=== PATIENT | male | born 1965 | race Caucasian/White ===

== ENCOUNTER 2025-06-04 17:34 | Emergency (ER) | payer MEDICAID, SELFPAY ==
[2025-06-04 17:39] VITALS: BP 152/100; PULSE 89; O2SAT 97
[2025-06-04 17:44] VITALS: BP 152/100; PULSE 87; RESP 22; TEMP 36.9; O2SAT 95; BMI 29.4
--- NOTE | 2025-06-04 17:44 | ED_ITS ---
<Statement entered by Shawanda Nascimento DO - 06/04/25 20:25> I was consulted by the TIFFANY, and we discussed the complexity of problems being addressed. I approve the treatment and management plan for this patient's care in the emergency department, thus performing a substantial portion of the medical decision making. Shawanda Nascimento DO Discharge Plan Disposition Patient Disposition: Home, Self-Care Condition: Good Prescriptions Prescriptions: New azithromycin 500 mg tablet 500 mg PO DAILY 5 Days Qty: 5 0RF Rx Instructions: start on day 2 of therapy prednisone 20 mg tablet 40 mg PO DAILY 5 Days Qty: 10 0RF Referrals Follow up/Referrals: Provider,Referral, MD [Primary Care Provider, Medical] - See instructions Activity Restrictions/Add. Instructions Additional Instructions/Restrictions: Please return to the emergency department with any worsening signs or symptoms, please use inhaler and take medications as prescribed. Please follow-up with your family doctor and other specialist when you get home. Clinical Impressions Clinical Impression: Acute exacerbation of chronic obstructive airways disease Instructions Patient Instructions: Chronic Obstructive Pulmonary Disease, DI for Chronic Obstructive Pulmonary Disease, DI for Emphysema Print Language Print Language: Welsh Discharge ED Provider: Shawanda Nascimento General Adult HPI General Chief complaint: Shortness of Breath/Dyspnea Stated complaint: Sent by [facility]; Low Oxygen; SOB Time Seen by Provider: 06/04/25 17:41 Mode of Arrival: Ambulatory Source of Information: Patient Limitations: No Limitations History of Present Illness HPI narrative: 59-year-old male presents the emergency department at the request of urgent care provider, patient has had some subjective fever chills cough and congestion, for the last 3 to 4 days, describes it as productive cough coughing up phlegm , as well as shortness of breath, was seen in the urgent care treatment facility today, patient is from out of town, concern for low oxygen saturation , thus prompted emergency department evaluation, patient received a what sounds like nebulized breathing treatment, as well as negative rapid COVID and flu swabs, denies any chest pain, lightheadedness, dizziness, no abdominal pain no nausea no vomiting no constipation no diarrhea no urinary cosmetology, patient is a current everyday smoker, denies any alcohol or drug use, other past medical history is consistent with prior CABG, hyperlipidemia, T2DM, COPD, hypertension, GERD. Initial triage vitals are unremarkable, no tachycardia no hypoxia, SpO2 on room air is 98%. Please note that above description of symptoms, in this electronic medical record under categorization of recalled from ER triage doctor by RN are reflective of an initial nursing assessment, however, is not reflective of my full history and physical exam that was personally taken and clarified. Consequentially, this preceding description of symptoms, which may include the patient's categorized chief complaint in the EMR, do not reflect my personal clinical impression, and the ultimate description of history of present illness and patient stated complaints should be deferred to this section of the note. Unless stated otherwise or congruent with this section of the note, additional signs, symptoms, or incongruence should be interpreted as inaccurate with my clinical impression. Onset (ago): day(s) Related Data Previous Rx's ?Medication ?Instructions ?Recorded azithromycin 500 mg tablet 500 mg PO DAILY 5 days #5 t abs 06/04/25 prednisone 20 mg tablet 40 mg (2 x 20 mg) PO DAILY 5 days 06/04/25 #10 tabs Allergies Allergy/AdvReac Type Severity Reaction Status Date / Time No Known Allergies Allergy Verified 06/04/25 18:08 [facility] Disclaimer: The information contained in this section may have been updated after the patient was seen, as this information can be updated by other users. Social History Smoking Status: Current every day smoker alcohol intake: never current occupational status: other Travel in the last 8 weeks?: None ROS Obtained: Yes All systems reviewed & no additional complaints except as documented Physical Exam General General appearance: alert and in no apparent distress Head Head exam: atraumatic and normocephalic Eye Eye exam: Present PERRL and EOMI ENT ENT exam: Present mucous membranes moist Neck Neck exam: Present normal inspection Chest Chest inspection: Present normal inspection and symmetric chest wall rise Respiratory Respiratory exam: Present wheezes and other (Mild wheezes heard throughout bilateral lung lara, mild crackles heard throughout bilateral lung field); Absent normal lung sounds bilaterally or respiratory distress Cardiovascular Cardiovascular exam: Present regular rate and normal rhythm Abdominal Exam Abdominal exam: Present soft; Absent tenderness, guarding, rebound or rigidity Extremities Exam Extremities exam: Present normal inspection Neurological Exam Neurological exam: Present alert and oriented X3 Psychiatric Psychiatric exam: Present normal affect Skin Skin exam: Present warm and dry Medical Decision Making Medical Records Medical records reviewed: Yes I reviewed the patient's medical records. Screening: Per USPSTF and CDC recommendations, given the prevalence of disease in our region, it is our hospital?s policy to screen for HIV and viral Hepatitis for all patients aged 18 and over and those with ongoing risk factors. Jovani Inquiry Pt receiving controlled substance: No Jovani was queried for this patient: No Vital Signs: 06/04/25 17:39 06/04/25 17:44 06/04/25 18:00 Temperature 98.5 F Temperature Source Oral Pulse Rate 89 78 Pulse Rate [Right] 87 Respiratory Rate 22 Blood Pressure 152/100 H 140/76 Blood Pressure [Right Arm] 152/100 H Blood Pressure Mean [Right Arm] 117 Blood Pressure Source Blood Pressure Position 02 Sat by Pulse Oximetry 97 95 95 Oxygen Delivery Method Room Air 06/04/25 18:30 06/04/25 19:39 06/04/25 19:45 Temperature 97.9 F Temperature Source Oral Pulse Rate 81 78 81 Pulse Rate [Right] Respiratory Rate 16 Blood Pressure 123/84 152/82 H 152/82 H Blood Pressure [Right Arm] Blood Pressure Mean [Right Arm] Blood Pressure Source Automatic Cuff Blood Pressure Position Sitting 02 Sat by Pulse Oximetry 95 98 Oxygen Delivery Method Room Air Lab Data Lab results reviewed: Yes I reviewed the patient's lab results. Lab Results 06/04/25 17:46: WBC 7.4, RBC 5.47, Hgb 17.2, Hct 49.8, MCV 91.0, MCH 31.4 H, MCHC 34.5, RDW 12.6, Plt Count 182, MPV 10.0, Neut % (Auto) 59.2, Lymph % (Auto) 21.1, [place] % (Auto) 12.0 H, Eos % (Auto) 6.7, Baso % (Auto) 0.9, Neut # (Auto) 4.4, Lymph # (Auto) 1.6, [place] # (Auto) 0.9, Eos # (Auto) 0.5 H, Baso # (Auto) 0.1, PT 11.6, INR 1.05, D-Dimer 0.58 H, Sodium 142, Potassium 3.8, Chloride 109 H, Carbon Dioxide 24, Anion Gap 12.8, BUN 10, Creatinine 0.90, Estimated Creat Clear 119, Estimated GFR 87, Est GFR ( Amer) 105, Glucose 174 H, Calcium 9.5, Magnesium 1.9, Total Bilirubin 0.9, AST 32, ALT 23, Alkaline Phosphatase 118, Troponin I 0.02, NT-Pro-B Natriuret Pep 2240 H, Total Protein 7.4, Albumin 4.5, Globulin 2.9, Albumin/Globulin Ratio 1.6, Lipase 144 06/04/25 17:58: VBG pH 7.38, VBG pCO2 38.3, VBG pO2 66.8 H, VBG HCO3 22.1 L, VBG Total CO2 23.3, VBG O2 Saturation 92.5 H, VBG Base Excess -3.0 L, VBG Lactic Acid 1.9 06/04/25 17:46 06/04/25 17:46 Orders (Tests/Meds): ED MEDICATIONS Generic Name Dose Route Start Last Admin Trade Name Freq PRN Reason Stop Dose Admin Albuterol/Ipratropium 1 puff 06/04/25 19:55 Combivent 20mcg/100mcg Respimat Inhaler IH 06/04/25 19:56 ONCE ONE Discontinued Medications Generic Name Dose Route Start Last Admin Trade Name Freq PRN Reason Stop Dose Admin Albuterol/Ipratropium 3 ml 06/04/25 18:54 06/04/25 19:22 Ipratropium/Albuterol 3 Ml Neb IH 06/04/25 18:55 3 ml ONCE ONE Administration Methylprednisolone Sodium Succinate 125 mg 06/04/25 18:55 06/04/25 19:23 Methylprednisolone Sod Succ 125mg Vial IV 06/04/25 18:56 125 mg ONCE ONE Administration ORDERS Category Date Time Status XR chest portable Stat Exams 06/04/25 17:52 Completed Complete Blood Count Auto Diff Stat Lab 06/04/25 17:46 Completed Comprehensive Metabolic Panel Stat Lab 06/04/25 17:46 Completed D-Dimer Stat Lab 06/04/25 17:46 Completed Lipase Stat Lab 06/04/25 17:46 Completed Magnesium Stat Lab 06/04/25 17:46 Completed NT Pro Brain Natriuretic Pep. Stat Lab 06/04/25 17:46 Completed PT INR [Prothrombin Time INR] Stat Lab 06/04/25 17:46 Completed Troponin I Q3H Lab 06/04/25 21:00 Ordered Troponin I Q3H Lab 06/05/25 00:00 Ordered Troponin I Stat Lab 06/04/25 17:46 Completed VBG [Venous Blood Gas] Stat RT 08/23/25 17:58 Completed Medical Decision Narrative: 59-year-old male presents the emergency department accompanied by his for a 3 to 4-day history of productive cough congestion, subjective fever chills and shortness of air, differential diagnose include but not limited to, COPD exacerbation, new onset CHF/exacerbation, pneumonia, acute on chronic hypoxic respiratory failure, pneumonitis, cardiac arrhythmia, electrolyte disturbance, pneumothorax, PE, pulmonary edema among others. I discussed this patient's case with the attending physician she saw and examined the patient as well Will obtain basic laboratory studies, chest x-ray, EKG, D-dimer lipase magnesium level proBNP PT/INR, troponin. I reviewed the patient's EKG along with the attending physician at approximately 1741 NSR with occasional PVCs, at 87 bpm PA interval within was, QT interval within normal limits there is no STEMI. CBC unremarkable VBG is notable for normal pH, normal CO2, bicarb is 22.1, O2 is elevated at six 6.8, no venous lactic acid. PT/INR within normal limits CMP noted for minimal hyperchloremia at 109, otherwise unremarkable. D-dimer is 0.58, , troponin is 0.02, proBNP is mildly elevated at 2240, however utilizing years criteria and age-adjusted D-dimer criteria, low likelihood for PE/VTE. Will give 3 mm DuoNeb and 125 mg IV methylprednisone for COPD exacerbation here in the emergency department. I reviewed the patient's chest x-ray along with the corresponding radiological report, no acute findings, Reexamination of the patient at approximately 7:50 PM, patient's wheezing has improved, his ox saturations to remained around 95 to 96% on room air, patient is currently undergoing workup for new diagnosis of emphysema/COPD, has appointment slated for this, I will prescribe the patient a metered-dose inhaler (Combivent), here in the emergency department for him to take home as needed, will prescribe 40 mg p.o. prednisone for 5 days as well as azithromycin 500 mg p.o, daily for 5 days. Patient was given strict ED return precautions, patient voiced understanding and agreed with current treatment plan/discharge plan. He will follow-up with PCP and other specialist as directed. Critical Care Critical Care Time Critical Care Time: No
--- NOTE | 2025-06-04 17:52 | XR_ITS ---
PROCEDURE INFORMATION: Exam: XR Chest Exam date and time: 06/04/2025 6:11 PM Age: 59 years old Clinical indication: Cough and shortness of breath; Additional info: SOA, cougha nd congestion TECHNIQUE: Imaging protocol: Radiologic exam of the chest. Views: 1 view. COMPARISON: No relevant prior studies available. FINDINGS: Lungs: Mild crowding of bronchovascular structures from low volumes. No definite consolidations. 7 mm nodularity in the right lung base is likely related to artifact or a calcified granuloma. If warranted, consider follow-up films or correlation with noncontrast chest CT in a nonemergent setting. Pleural spaces: Unremarkable. No pleural effusion. No pneumothorax. Heart/Mediastinum: Mild cardiomegaly and evidence of prior CABG. Bones/joints: Unremarkable. IMPRESSION: No acute findings.
[2025-06-04 17:59] LABS: Hematocrit 49.8 % (42.0-52.0); Hemoglobin 17.2 g/dL (14.1-18.0); Immature Granulocytes % 0.1 %; Mean Corpuscular HGB Conc 34.5 g/dL (31.8-35.4); Mean Corpuscular Hemoglobin 31.4 pg (27.0-31.2); Mean Corpuscular Volume 91.0 fl (80-94); Nucleated Red Blood Cells % 0 %; Platelet Count 182 K/mm3 (142-424); Red Blood Count 5.47 M/mm3 (4.60-6.20); Red Cell Distribution Width-SD 42.2 fL; White Blood Count 7.4 K/mm3 (4.8-10.8)
[2025-06-04 18:00] VITALS: BP 140/76; PULSE 78; O2SAT 95
--- NOTE | 2025-06-04 18:00 | ECG_ITS ---
APPROVED REPORT Exam: Resting ECG HR:87 bpm ECG Measurements Heart Rate 87 AXES NJ 124 P 59 QRSd 107 QRS 17 QT 375 T 68 QTc 419 Conclusion Normal sinus rhythm without acute ST or T wave changes concerning for ischemia Electronically signed by : Shawanda Nascimento, 06/13/2025 00:13:53
[2025-06-04 18:10] LABS: Albumin Level 4.5 g/dl (3.5-5.0); Chloride 109 mmol/L (98-107); Potassium 3.8 mmoL/L (3.5-5.1); Sodium 142 mmol/L (136-145)
[2025-06-04 18:11] LABS: INR 1.05 (0.9-1.1); Prothrombin Time 11.6 seconds (10.1-12.5)
[2025-06-04 18:13] LABS: Alanine Aminotransferase 23 U/L (12-78); Albumin/Globulin Ratio 1.6 (1.1-1.8); Alkaline Phosphatase 118 U/L (38-126); Anion Gap 12.8 mEq/L (5-15); Aspartate Amino Transferase 32 U/L (17-59); Bilirubin,Total 0.9 mg/dl (0.2-1.3); Blood Urea Nitrogen 10 mg/dl (9-20); Calcium 9.5 mg/dl (8.4-10.2); Carbon Dioxide 24 mmol/L (22.0-30.0); Creatinine Clearance Estimated 119 mL/min (50-200); Creatinine,Serum 0.90 mg/dl (0.66-1.25); Estimated Glomerular Filt Rate 87 ml/min (>60); GFR (African American) 105 ML/MIN (>60); Globulin 2.9 g/dL (1.3-3.2); Glucose 174 mg/dl (74-100); Lipase 144 U/L (23-300); Magnesium 1.9 mg/dl (1.6-2.3); Total Protein,Serum 7.4 g/dl (6.3-8.2)
[2025-06-04 18:13] LABS: Lactate Venous 1.9 mmol/L (0.4-2.0); VBG HCO3 22.1 mmol/L (23-30); VBG PCO2 38.3 mmol/L (35-51); VBG PH 7.38 mmol/L (7.31-7.41); VBG PO2 66.8 mmol/L (28-40)
[2025-06-04 18:23] LABS: NT Pro Brain Natriuretic Pep. 2240 pg/mL (0-125)
[2025-06-04 18:25] LABS: Troponin I 0.02 ng/ml (0.00-0.034)
[2025-06-04 18:30] VITALS: BP 123/84; PULSE 81; O2SAT 95
[2025-06-04 18:33] LABS: D-Dimer 0.58 ug/mL (0.0-0.5)
[2025-06-04] MEDS: IPRATROPIUM/ALBUTEROL 3 ML NEB IH (19:22)
[2025-06-04] MEDS: METHYLPREDNISOLONE SOD SUCC 125MG VIAL 125 MG IV (19:23)
[2025-06-04 19:39] VITALS: BP 152/82; PULSE 78; RESP 16; TEMP 36.6; O2SAT 95
[2025-06-04 19:45] VITALS: BP 152/82; PULSE 81; O2SAT 98
[2025-06-04] MEDS: AEROCHAMBER/OPTIHALER 1 UNIT MC (20:02)
[2025-06-04] MEDS: COMBIVENT 20MCG/100MCG RESPIMAT INHALER 1 PUFF IH (20:02)
== END 2025-06-04 20:16 | disposition home or self-care (01) ==
PROVIDERS: Physician Assistant; Emergency Provider Student in an Organized Health Care Education/Training Program
DX: J44.1 Chronic obstructive pulmonary disease with (acute) exacerbation (principal); F17.200 Nicotine dependence, unspecified, uncomplicated
CPT/HCPCS: 71045; 80053; 82803; 83690; 83735; 83880; 84484; 85025; 85378; 85610; 93005; 96374; 99284; 99285; J2919